=== PATIENT | female | born 1965 | race Caucasian/White ===

== ENCOUNTER 2016-10-11 19:00 | Emergency (ER) | payer BC ==
[~2016-10-11 19:00] MED LIST: AMB10 PO; ASAB PO; C2 PO; CALTRAT600 PO; CIP5 PO; COUMADIN4 MG PO; IMOD PO; IRON325 MG PO; LEVOTHYROXIN50 MCG PO; LORT7 PO; MACROBID PO; MIRALAXPKT PO; P125 PO; PERCOCET; PERCOCET1 TA5 PO; PR25 PO; PYR200 PO; REQUIP2 PO; SYN.15 PO; SYN1 PO; SYNTHROID175 MCG PO; SYNTHROID200 MCG PO; VITAMIN D1000 UNI1 PO; VITC500 PO; X5 PO
[2016-10-11 19:49] LABS: BASOPHILS 0.4 %; BASOPHILS ABSOLUTE 0.02 10/3/uL (0.0-0.16); EOSINOPHILS 4.1 %; ER CBC TAT 0 Hrs 09 Mins; HEMATOCRIT 41.3 % (36.0-48.0); LYMPHOCYTES 44.9 %; LYMPHOCYTES ABSOLUTE 2.19 10/3/uL (0.67-4.30); MEAN CORPUS HGB CONC 31.5 g/dL (32.0-36.0); MEAN CORPUSCULAR HEMOGLOB 28.7 pg (26.0-34.0); MEAN PLATELET VOLUME 9.8 fL (9.2-13.0); MONOCYTES 8.4 %; MONOCYTES ABSOLUTE 0.41 10/3/uL (0.21-1.20); NEUTROPHILS 42.2 %; NEUTROPHILS ABSOLUTE 2.06 10/3/uL (2.02-8.40); PLATELET COUNT 251 10/3/uL (150-400); RBC DISTRIBUTION WIDTH 14.6 % (12.0-16.0); RED CELL COUNT 4.53 10/6/uL (4.0-5.6); WHITE BLOOD CELLS 4.9 10/3/uL (4.5-10.5)
[2016-10-11 19:51] LABS: MANUAL DIFF NO %; MEAN CORPUSCULAR VOLUME 91.2 fL (80-100)
[2016-10-11 19:54] LABS: ASCORBIC ACID (UR NOT ORDER) NEG (NEG); BILIRUBIN, URINE NEGATIVE (NEG); ER URINALYSIS TAT 0 Hrs 14 Mins; KETONE, URINE NEGATIVE (NEG); LEUKOCYTE ESTERASE(NOT OR MOD (NEG); NITRITE (URINE) NEG (NEG); WBC (NOT ORDERED) (RFLEX) 76 (0-5)
[2016-10-11 20:03] LABS: CALCIUM, SERUM 9.1 MG/DL (8.5-10.4); CHLORIDE, SERUM 100 MMOL/L (96-112); CO2 (CARBON DIOXIDE) 32 MMOL/L (24-34); CREATININE 0.77 MG/DL (0.55-1.02); GFR AFRICAN AMERICAN 102 ML/MIN (>=60); GFR NON AFRICAN AMERICAN 88 ML/MIN (>=60); GLUCOSE, SERUM 109 MG/DL (60-99); SODIUM, SERUM 139 MMOL/L (135-148)
[2016-10-11 20:05] LABS: BUN (BLOOD UREA NITROGEN) 16 MG/DL (6-23); POTASSIUM, SERUM 4.9 MMOL/L (3.5-5.3)
[2016-10-16] MEDS ORDERED: SYN125 PO (16:16)
[2016-10-16] MEDS ORDERED: C5 PO ×2 (16:17→16:18)
[2016-10-16] MEDS ORDERED: VITAMIN D2000 UNIT PO (16:22)
[2016-10-16] MEDS ORDERED: VITE PO (16:23)
[2016-10-16] MEDS ORDERED: [UNRECOGNIZED DRUG - OTHER] PO (16:24)
[2016-10-16] MEDS ORDERED: XANAX1 MG PO (16:25)
== END 2016-10-11 23:39 | disposition home or self-care (01) ==
LOC: ER 19:00
PROVIDERS: Emergency Medicine
DX: N20.1 Calculus of ureter (principal); Z88.0 Allergy status to penicillin; Z88.8 Allergy status to other drugs, medicaments and biological substances; Z79.01 Long term (current) use of anticoagulants; Z79.82 Long term (current) use of aspirin
CPT/HCPCS: 80048; 81001; 85025; 87086; 96374; 96376; 99284; J1170; J2405; J2550

== ENCOUNTER 2016-10-17 12:57 | Day surgery (SDC) | payer BC ==
--- NOTE | ~2016-10-17 | OP ---
Record Of Operation [facility] [address] [place]. [address] NAME: STEVE FALCON : 61 STATUS : [facility]#: [id number] AGE: 51 ADM/REG DATE : 10/17/16 MR#: [id number] REPORT SERV DATE: 10/17/16 DICTATED BY: Milagros SEVILLA DATE: 10/17/16 REPORT STATUS : Draft TRANSCRIBED BY: MODL DATE: 10/17/16 DATE OF PROCEDURE: 10/17/2016 PREOPERATIVE DIAGNOSIS: Longstanding left distal ureteral stone. POSTOPERATIVE DIAGNOSIS: Left distal ureteral stone with mild chronic ureteral changes. PROCEDURE: Cystoscopy, left retrograde pyelography, ureteroscopy, laser lithotripsy, stone extraction, double-J stent placement. SURGEON: Milagros Sevilla M.D. ANESTHESIA: General. COMPLICATIONS: None. DRAINS: 7-Nicaraguan x 24 cm Contour double-J stent. BRIEF HISTORY: Ms. Falcon is a 51-year-old white female, well known to me, but not seen by me in five years or so, until late last week when she complained of gross hematuria, and left ureteral stone that by history had seemed to have been there for several months. It was about 1.1 cm in longest dimension and there was mild diffuse urothelial wall thickening indicative of chronic obstruction. We discussed options including ESWL and endoscopy. ESWL has not work well with her in the past and so we decided to proceed with endoscopy. We had a long discussion about the fact that this could be impacted and perhaps a stent could not be placed and we could not access stone on first flush. She had a preoperative urine culture that was negative and after discussion with Dr. Saenz, it was decided to stop her Coumadin for several days and she was already off her aspirin. Additional risk of bleeding, infection, anesthesia, injury to adjacent organs, need for further procedures were all discussed. There were no unanswered questions. DESCRIPTION OF PROCEDURE: Under excellent general anesthesia, the patient was prepped and draped in a standard lithotomy position. Cystoscopy was performed with a 30-degree lens and revealed a normal bladder and normal right ureteral orifice. The left orifice had evidence of edema and erythema consistent with distal obstruction. The meatus appeared normal. I inserted an 8-Nicar[place]uan cone-tipped catheter into the left ureteral meatus and performed a retrograde pyelogram, it showed a filling defect a centimeter or so above the UVJ, with proximal ureteral pyelocaliectasis. I inserted an angled glidewire through a 5-[place]icaraguan open- ended catheter, and fortunately, it passed the stone without much difficulty. I then inserted a short rigid ureteroscope alongside the wire and encountered a salazar colored stone in the distal ureter. There was quite a bit of ureteral reaction with polypoid changes around the stone consistent with known long-term obstruction. It was obvious a stone could not be removed primarily, so I inserted a 200 micron holmium YAG laser fiber, and using the dusting settings, fragmented this into passable or extractable pieces. I then used a NGage basket and removed the larger fragments of leaving only dust in the ureter. No further significant fragments were noted. I passed the scope all the way up to the proximal ureter Record Of [place] [id number] [facility] [place]. [address] NAME: STEVE FALCON : 61 STATUS : [facility]#: [id number] AGE: 51 ADM/REG DATE : 10/17/16 MR#: [id number] REPORT SERV DATE: 10/17/16 DICTATED BY: Milagros SEVILLA DATE: 10/17/16 REPORT STATUS : Draft TRANSCRIBED BY: LIZA DATE: 10/17/16 and it was clear except for dilation. I dilutely opacified the collecting system, retrofitted the wire into the cystoscope, and placed a 7-[place]icar[place] x 24 cm Contour double-J stent which coiled nicely in the renal pelvis and bladder. I planned to discharge Ms. Falcon as an outpatient with the following instructions. DISCHARGE INSTRUCTIONS: 1. Home today. 2. Percocet 5/325 one to two p.o. q.4 hours p.r.n. pain, #25. 3. Pyridium 200 mg one p.o. t.i.d. p.r.n. bladder pain #15 with three refills. 4. Due to the chronic obstruction, I feel that the stent should be in a little bit longer than usual. Therefore, I recommend we remove the stent in about two weeks. I am happy to do that in the office if she wants to do that, and then we will proceed with further stone workup, and evaluation as per her wishes. She can restart her aspirin and Coumadin in the next 48 hours. DORY/DEMETRAL Milagros Sevilla M.D. / [id number] CC: Leeanna Antoine M.D. Leonard Hays III, M.D., [facility], [facility] Sergio Saenz M.D.
[~2016-10-17 12:57] MED LIST changes: +C5 PO; +SYN125 PO; +VITAMIN D2000 UNIT PO; +VITE PO; +XANAX1 MG PO; +[UNRECOGNIZED DRUG - OTHER] PO
[2016-10-17 14:35] LABS: PROTIME (NOT ORD) 12.6 SEC (12.0-14.5)
[2016-10-22 16:46] LABS: STONE COMPOSITION TWO DNR (())
== END 2016-10-17 19:30 | disposition home or self-care (01) ==
LOC: SDC 12:57
PROC: 0T778DZ Dilation of Left Ureter with Intraluminal Device, Via Natural or Artificial Opening Endoscopic (ICD-10-PCS; 2016-10-17)
PROC: 0TF78ZZ Fragmentation in Left Ureter, Via Natural or Artificial Opening Endoscopic (ICD-10-PCS; principal; 2016-10-17 15:15)
DX: N20.1 Calculus of ureter (principal); E03.9 Hypothyroidism, unspecified; I73.9 Peripheral vascular disease, unspecified; F41.9 Anxiety disorder, unspecified; F32.9 Major depressive disorder, single episode, unspecified; E21.5 Disorder of parathyroid gland, unspecified; Z90.710 Acquired absence of both cervix and uterus; Z30.2 Encounter for sterilization; Z98.890 Other specified postprocedural states; Z86.718 Personal history of other venous thrombosis and embolism; Z88.0 Allergy status to penicillin; Z88.8 Allergy status to other drugs, medicaments and biological substances
CPT/HCPCS: 74420; 82365; 85610; 93005; A9270-GY; C1758; C1769; C1874; J2250; J2270; J2405; J2710; J3010; Q9967